=== PATIENT | female | born 1955 | race Caucasian/White ===

== ENCOUNTER 2018-04-08 06:35 | Emergency (ER) | payer MEDICARE, MEDICAID ==
[~2018-04-08] VITALS: Ht 172.7 cm; Wt 113.4 kg
[~2018-04-08 06:35] MED LIST: ADVIL200 MG PO; AMBIEN10 MG PO; ANTIVERT25 MG PO; BACTROBAN OINT22 GM PO; CIPROFLOXACIN500 MG PO; CLARITIN10 MG PO; CLINDAMYCIN300 MG PO; DARVOCET N 1001 TAB PO; DILTIAZEM360 MG; DILTIAZEM360 MG PO; DITROPAN XL10 MG PO; DITROPAN5 MG; DITROPAN5 MG PO; ESIDREX,ORETIC,25 MG PO; FLEXERIL10 MG PO; FLEXERIL5 MG PO; KEFLEX500 MG PO; LISINOPRIL/HCTZ1 TA4 PO; LISINOPRIL/HCTZ1 TA5 PO; LISINOPRIL/HYDR1 TA1; MOTRIN800 MG PO; NAPROSYN500 MG PO; NEOSPORIN1 OI1 TP; NEXIUM40 MG PO; PLAVIX75 MG PO; REQUIP2 MG PO; ROPINIROLE HYDRO4 MG PO; SERTRALINE100 MG; SKELAXIN800 MG PO; TRANSDERM0.33 MG/24 TD; TRAZADONE HYDR100 MG; TRAZADONE HYDR100 MG PO; TRILEPTAL; TRILEPTAL150 MG; TRILEPTAL600 MG PO; VICODIN 5/500 505 MG PO; VICODIN ES 7501 TA1; VICODIN ES 7501 TA1 PO; VITAMIN D3; VITAMIN D5000 IU PO; VOLTAREN50 M1 PO; VOLTAREN50 MG; WELLBUTRIN; WELLBUTRIN SR150 MG PO; WELLBUTRIN SR200 MG PO; XANAX0.5 MG; XANAX0.5 MG PO; ZANTAC; ZANTAC150 MG PO; ZESTRIL,PRINIVI40 MG PO; ZOFRAN4 MG PO; ZOLOFT100 MG; ZOLOFT100 MG PO; ZOLPIDEM TART10 MG PO
[2018-04-08 07:46] VITALS: BP 138/72
[2018-04-08] MEDS ORDERED: PERCOCET 5-3251 EACH PO (08:30)
== END 2018-04-08 09:37 | disposition home or self-care (01) ==
LOC: ED 06:35
DX: S52.591A Other fractures of lower end of right radius, initial encounter for closed fracture (principal); S52.691A Other fracture of lower end of right ulna, initial encounter for closed fracture; Z88.5 Allergy status to narcotic agent; Z91.018 Allergy to other foods; Z79.899 Other long term (current) drug therapy; Z98.84 Bariatric surgery status; W01.0XXA Fall on same level from slipping, tripping and stumbling without subsequent striking against object, initial encounter; Y93.89 Activity, other specified; Y92.096 Garden or yard of other non-institutional residence as the place of occurrence of the external cause; Y99.8 Other external cause status

== ENCOUNTER → 2018-04-16 | Outpatient (CLI) | payer MEDICARE ==
[~2018-04-16] MED LIST changes: +PERCOCET 5-3251 EACH PO
== END | disposition home or self-care (01) ==
LOC: US 16:12
DX: R60.0 Localized edema (principal)

== ENCOUNTER 2019-05-22 15:37 | Emergency (ER) | payer MEDICARE ==
[~2019-05-22] VITALS: Ht 175.2 cm; Wt 122.5 kg
[2019-05-22 15:43] VITALS: BP 175/72
[2019-05-22 16:32] LABS: BILIRUBIN NEGATIVE (NEGATIVE); BLOOD NEGATIVE (NEGATIVE); CLARITY SL CLOUDY (CLEAR); COLOR YELLOW (YELLOW); GLUCOSE NEGATIVE (NEGATIVE); HEMATOCRIT 39.3 % (37.0-47.0); HEMOGLOBIN 12.1 g/dl (12.0-16.0); KETONE NEGATIVE (NEGATIVE); LEUKO ESTERASE NEGATIVE (NEGATIVE); MEAN CELL VOLUME 84.9 fl (81.0-99.0); MEAN CORPUSCULAR HGB 26.1 pg (27.0-31.0); MEAN CORPUSCULAR HGB CONC 30.8 g/dl (33.0-37.0); MEAN PLATELET VOLUME 10.7 fl (9.6-12.3); NITRITE NEGATIVE (NEGATIVE); PH 6.5 (5.0-9.0); PLATELET COUNT AUTOMATED 249 10*3/uL (130-400); RED BLOOD COUNT 4.63 10*6/uL (4.10-5.10); RED CELL DISTRI WIDTH 13.9 % (0-14.5); SPECIFIC GRAVITY 1.025 (1.005-1.030); WHITE BLOOD COUNT 7.3 10*3/uL (4.8-10.8)
[2019-05-22 16:48] LABS: ALBUMIN 3.4 gm/dl (3.1-4.5); BUN 13 mg/dl (7-24); CHLORIDE 110 mmol/L (98-107); LIPASE 61 U/L (73-393); POTASSIUM 4.4 mmol/L (3.5-5.1); SGOT/AST 15 IU/L (3-35); SGPT/ALT 16 U/L (12-78); SODIUM 142 mmol/L (136-145); TOTAL PROTEIN 7.1 gm/dL (6.4-8.2)
[2019-05-22 16:49] LABS: ALKALINE PHOSPHATASE 137 U/L (45-117)
[2019-05-22 17:06] LABS: BASOPHILS 2 % (0-1); TOTAL CELLS COUNTED 100 #CELLS
[2019-05-22 17:07] LABS: OVALOCYTES FEW; PLATELET SUFFICIENCY NORMAL (NORMAL)
[2019-05-22 17:17] LABS: BACTERIA 1+; EPITHELIAL CELLS 0-2; MUCOUS 1+; WBC 0-2 wbc/hpf (0-5)
[2019-05-22] MEDS ORDERED: ZOFRAN4 MG PO (18:26)
== END 2019-05-22 18:37 | disposition home or self-care (01) ==
LOC: ED 15:37
PROVIDERS: Nurse Practitioner Family
DX: K29.70 Gastritis, unspecified, without bleeding (principal); Z88.6 Allergy status to analgesic agent; Z91.018 Allergy to other foods; Z79.899 Other long term (current) drug therapy; Z90.49 Acquired absence of other specified parts of digestive tract; Z98.84 Bariatric surgery status

== ENCOUNTER → 2019-06-10 | Outpatient (CLI) | payer MEDICARE | END | disposition home or self-care (01) | LOC: RAD 12:48 | DX: M51.36 Other intervertebral disc degeneration, lumbar region (principal); M47.816 Spondylosis without myelopathy or radiculopathy, lumbar region; R10.813 Right lower quadrant abdominal tenderness; Z96.641 Presence of right artificial hip joint ==

== ENCOUNTER 2019-10-07 11:59 | Emergency (ER) | payer MEDICARE ==
[~2019-10-07] VITALS: Ht 172.7 cm; Wt 122.5 kg
[2019-10-07 12:11] VITALS: BP 162/70
[2019-10-07] MEDS ORDERED: METHOCARBAMOL500 M1 PO (13:05)
[2019-10-07] MEDS ORDERED: MEDROL DOSEPAK4 MG PO (13:05)
== END 2019-10-07 13:29 | disposition home or self-care (01) ==
LOC: ED 11:59
DX: M54.9 Dorsalgia, unspecified (principal); G89.29 Other chronic pain; F41.9 Anxiety disorder, unspecified; M19.90 Unspecified osteoarthritis, unspecified site; F32.9 Major depressive disorder, single episode, unspecified; I10 Essential (primary) hypertension; E78.00 Pure hypercholesterolemia, unspecified; Z88.8 Allergy status to other drugs, medicaments and biological substances; Z91.018 Allergy to other foods; Z79.899 Other long term (current) drug therapy; Z86.73 Personal history of transient ischemic attack (TIA), and cerebral infarction without residual deficits

== ENCOUNTER → 2020-02-22 | Outpatient (CLI) | payer MEDICARE ==
[~2020-02-22] MED LIST changes: +MEDROL DOSEPAK4 MG PO; +METHOCARBAMOL500 M1 PO
== END | disposition home or self-care (01) ==
LOC: COVID19 11:40
DX: R50.9 Fever, unspecified (principal); Z20.828 Contact with and (suspected) exposure to other viral communicable diseases

== ENCOUNTER → 2020-12-08 | Outpatient (CLI) | payer MEDICARE ==
[2020-12-08 15:54] LABS: BASO # 0.1 10*3/uL (0.0-0.1); BASO % 0.7 % (0.0-1.0); EOS # 0.3 10*3/uL (0.0-0.4); EOS % 3.8 % (1.0-4.0); HEMATOCRIT 38.1 % (37.0-47.0); LYMPH # 1.4 10*3/uL (1.3-4.4); LYMPH % 19.1 % (27.0-41.0); MEAN CELL VOLUME 84.3 fl (81.0-99.0); MEAN CORPUSCULAR HGB 26.3 pg (27.0-31.0); MEAN CORPUSCULAR HGB CONC 31.2 g/dl (33.0-37.0); MEAN PLATELET VOLUME 10.4 fl (9.6-12.3); MONO # 0.5 10*3/uL (0.1-1.0); MONO % 6.7 % (3.0-9.0); NEUT # 4.9 10*3/uL (2.3-7.9); NEUT % 69.1 % (47.0-73.0); PLATELET COUNT AUTOMATED 335 10*3/uL (130-400); RED BLOOD COUNT 4.52 10*6/uL (4.10-5.10); RED CELL DISTRI WIDTH 14.2 % (0-14.5); WHITE BLOOD COUNT 7.1 10*3/uL (4.8-10.8)
[2020-12-08 16:24] LABS: ALBUMIN 3.4 gm/dl (3.1-4.5); ALKALINE PHOSPHATASE 115 U/L (45-117); BUN 14 mg/dl (7-24); CHLORIDE 104 mmol/L (98-107); CREATININE 0.94 mg/dL (0.55-1.02); POTASSIUM 4.1 mmol/L (3.5-5.1); SGOT/AST 8 IU/L (3-35); SGPT/ALT 13 U/L (12-78); SODIUM 138 mmol/L (136-145); TOTAL PROTEIN 7.5 gm/dL (6.4-8.2)
[2020-12-08 16:32] LABS: FREE T4 1.13 ng/dl (0.76-1.46)
== END | disposition home or self-care (01) ==
LOC: LAB 14:48
PROVIDERS: ATTEND Physician Assistant
DX: I73.00 Raynaud's syndrome without gangrene (principal); L60.3 Nail dystrophy; L40.8 Other psoriasis

== ENCOUNTER → 2021-01-16 | Outpatient (CLI) | payer MEDICARE | END | disposition home or self-care (01) | LOC: MAMMO 11:00 | PROVIDERS: ATTEND Internal Medicine | DX: Z12.31 Encounter for screening mammogram for malignant neoplasm of breast (principal) ==

== ENCOUNTER 2021-12-23 00:57 | Emergency (ER) | payer MEDICARE ==
[2021-12-23 01:35] LABS: BASO % 0.6 % (0.0-1.0); EOS # 0.3 10*3/uL (0.0-0.4); EOS % 4.7 % (1.0-4.0); HEMATOCRIT 30.8 % (37.0-47.0); LYMPH % 16.6 % (27.0-41.0); MEAN CELL VOLUME 83.2 fl (81.0-99.0); MEAN CORPUSCULAR HGB 25.7 pg (27.0-31.0); MEAN CORPUSCULAR HGB CONC 30.8 g/dl (33.0-37.0); MONO # 0.5 10*3/uL (0.1-1.0); MONO % 7.7 % (3.0-9.0); NEUT # 4.4 10*3/uL (2.3-7.9); NEUT % 69.9 % (47.0-73.0); PLATELET COUNT AUTOMATED 258 10*3/uL (130-400); RED CELL DISTRI WIDTH 15.3 % (0-14.5); WHITE BLOOD COUNT 6.2 10*3/uL (4.8-10.8)
[2021-12-23 01:44] VITALS: BP 129/74
[2021-12-23 01:52] LABS: ALKALINE PHOSPHATASE 99 U/L (45-117); BUN 17 mg/dl (7-24); CHLORIDE 112 mmol/L (98-107); CREATININE 1.05 mg/dL (0.55-1.02); POTASSIUM 4.4 mmol/L (3.5-5.1); SGOT/AST 13 IU/L (3-35); SGPT/ALT 18 U/L (12-78); SODIUM 141 mmol/L (136-145); TOTAL PROTEIN 6.2 gm/dL (6.4-8.2)
[2021-12-23 01:59] LABS: ACT PARTIAL THROMBO TIME 24.8 SECONDS (20.0-32.1); INTERNATIONAL NORM RATIO 1.1 (2.0-3.5)
== END 2021-12-23 02:21 | disposition short-term general hospital (02) ==
LOC: ED 00:57
PROVIDERS: Emergency Medicine
DX: I21.3 ST elevation (STEMI) myocardial infarction of unspecified site (principal)

== ENCOUNTER → 2022-01-16 | Outpatient (CLI) | payer OTHER ==
[~2022-01-16] MED LIST changes: +ATARAX,VISTARIL50 MG PO; +ATORVASTATIN CA80 M1 PO; +CEFUROXIME AXE250 MG PO; +CLOPIDOGREL75 MG PO; +ELIQUIS5 M1 PO; +ENTRESTO 24 MG1 EACH PO; +HYDROCODONE-AC1 EAC2 PO; +LYRICA100 M1 PO; +METOPROLOL SUCC25 M2 PO; +PREGABALIN100 MG PO; +TYLENOL325 M2 PO; +VITAMIN D350 MCG PO
== END ==
LOC: WOUNDCARE 01:46
PROVIDERS: ATTEND Nurse Practitioner Family
DX: S01.102A Unspecified open wound of left eyelid and periocular area, initial encounter (principal); I10 Essential (primary) hypertension; M15.9 Polyosteoarthritis, unspecified; R62.7 Adult failure to thrive; G89.29 Other chronic pain; M84.9 Disorder of continuity of bone, unspecified; W19.XXXA Unspecified fall, initial encounter; Y92.098 Other place in other non-institutional residence as the place of occurrence of the external cause; Y93.89 Activity, other specified; Y99.8 Other external cause status

== ENCOUNTER 2022-01-25 11:00 | Emergency (ER) | payer OTHER ==
[~2022-01-25] VITALS: Ht 172.7 cm; Wt 118.4 kg
[2022-01-25 12:03] LABS: BASO % 0.4 % (0.0-1.0); EOS # 0.1 10*3/uL (0.0-0.4); EOS % 1.6 % (1.0-4.0); HEMATOCRIT 29.8 % (37.0-47.0); LYMPH # 0.7 10*3/uL (1.3-4.4); MEAN CELL VOLUME 81.6 fl (81.0-99.0); MEAN CORPUSCULAR HGB 24.4 pg (27.0-31.0); MEAN CORPUSCULAR HGB CONC 29.9 g/dl (33.0-37.0); MEAN PLATELET VOLUME 9.9 fl (9.6-12.3); MONO # 0.6 10*3/uL (0.1-1.0); MONO % 9.1 % (3.0-9.0); NEUT # 5.2 10*3/uL (2.3-7.9); NEUT % 77.3 % (47.0-73.0); PLATELET COUNT AUTOMATED 262 10*3/uL (130-400); RED BLOOD COUNT 3.65 10*6/uL (4.10-5.10); RED CELL DISTRI WIDTH 15.7 % (0-14.5); WHITE BLOOD COUNT 6.7 10*3/uL (4.8-10.8)
[2022-01-25 12:25] LABS: CREATININE 1.74 mg/dL (0.55-1.02); TOTAL PROTEIN 6.3 gm/dL (6.4-8.2)
[2022-01-25 13:14] VITALS: BP 99/63
[2022-01-25 15:29] LABS: BILIRUBIN 2+ (Negative); BLOOD Negative (Negative); CLARITY Clear (Clear); COLOR Dark Yellow (Yellow); GLUCOSE Negative (Negative); KETONE 1+ (Negative); LEUKO ESTERASE Trace (Negative); NITRITE Negative (Negative); PH 5.5 (4.5-8.0); SPECIFIC GRAVITY 1.025 (1.001-1.030)
[2022-01-25 15:39] LABS: BACTERIA 1+; MUCOUS 2+
[2022-01-26 08:07] LABS: HBSAG Negative (Negative); HEP B CORE AB, IGM Negative (Negative); HEPATITIS C ANTIBODY 0.1 (0.0-0.9)
== END 2022-01-25 16:10 | disposition left against medical advice (07) ==
LOC: ED 11:00
PROVIDERS: Nurse Practitioner Family
DX: R79.89 Other specified abnormal findings of blood chemistry (principal)